=== PATIENT | female | born 1975 | race Caucasian/White ===

== ENCOUNTER → 2017-03-31 | Outpatient (CLI) | payer BC ==
--- NOTE | ~2017-03-31 | MR32 ---
[facility] A Service of [facility] & [facility] RADIOLOGY TEXT RESULTS PATIENT: MICHELLE SENIOR LOCATION: [facility] : 77 UNIT #: [id number] AGE: [address]: Brody Dozier MD SEX: F ORDER DR: [id number] [facility] [address] [place], [place] [address] [id number] O MR#: [id number] Acc #: [id number] NAME: MICHELLE SENIOR : 1975 SEX: F STUDY DATE/TIME: 03/31/2017 8:41 UNIT: [facility] ROOM: STUDY DESCRIPTION: MR Cervical Wo Contrast Attending Physician: Brody Dozier M.D. Referring Physician: Brody Dozier M.D. Ordering Physician: Brody Dozier M.D. Primary Care Physician: Brody Dozier M.D. [facility] CENTER REPORT This report is preliminary unless electronic signature is present. EXAM Cervical spine MRI, no contrast; 03/31/2017. COMPARISON Previous cervical spine MRI most recent dated 09/04/2010 HISTORY History of Chiari-I malformation, status post suboccipital craniectomy. Patient now complains of right posterior neck and occipital skull mass, right side neck and shoulder numbness. FINDINGS Spine alignment is normal. Bone marrow and cord signal are normal. Patient has had suboccipital craniectomy, but the exam is otherwise unremarkable. No mass is seen, and there is no substantial canal or foraminal compromise at any level in the cervical spine. IMPRESSION Normal cervical spine MRI, status post suboccipital craniectomy. No canal or foraminal compromise, abnormal marrow or cord signal, or evidence of mass or mass effect in the posterior soft tissues. Dictated by... Curt Castillo M.D. THIS IS AN ELECTRONICALLY VERIFIED REPORT Curt Castillo M.D. at 04/04/2017 9:08 AM RICK/cherelle TD: 03/31/2017 17:13 JOB #: [id number] [facility] A Service of [facility] & [facility] RADIOLOGY TEXT RESULTS PATIENT: MICHELLE SENIOR LOCATION: [facility] : 77 UNIT #: [id number] AGE: [address]: Brody Dozier MD SEX: F ORDER DR: MRI CENTER REPORT Page 1 of 1 COPY
--- NOTE | ~2017-03-31 | MR18 ---
[facility] A Service of [facility] RADIOLOGY TEXT RESULTS PATIENT: MICHELLE SENIOR LOCATION: [facility] : 77 UNIT #: [id number] AGE: [address]: Brody Dozier MD SEX: F ORDER DR: [id number] [facility] [address] [place], [place] [address] [id number] O MR#: [id number] Acc #: [id number] NAME: MICHELLE SENIOR : 1975 SEX: F STUDY DATE/TIME: 03/31/2017 8:20 UNIT: [facility] ROOM: STUDY DESCRIPTION: MR Brain Wo Contrast Attending Physician: Brody Dozier M.D. Referring Physician: Brody Dozier M.D. Ordering Physician: Brody Dozier M.D. Primary Care Physician: Brody Dozier M.D. MRI CENTER REPORT This report is preliminary unless electronic signature is present. EXAM Brain MRI without contrast, 03/31/2017. PROCEDURE Routine unenhanced brain MRI. HISTORY Two to three month history of episodes of dizziness. COMPARISON Prior brain MRI dated 10/24/2006. FINDINGS Patient has had suboccipital craniectomy, and Chiari malformation demonstrated on the prior brain MRI is no longer present. The brain, itself, is structurally normal. Brain parenchymal signal is normal. There is no mass, hydrocephalus or extraaxial fluid collection. It appears there has been previous sinus surgery and there is a frontal, ethmoid, sphenoid and maxillary sinus mucosal thickening but no air-fluid level. IMPRESSION Sinus mucosal disease and surgical changes from posterior fossa decompression, otherwise, normal brain MRI without contrast. The previously demonstrated Chiari-I malformation is no longer identifiable. The exam is otherwise normal. Dictated by... Curt Castillo M.D. THIS IS AN ELECTRONICALLY VERIFIED REPORT [facility] A Service of [facility] RADIOLOGY TEXT RESULTS PATIENT: MICHELLE SENIOR [facility] [birth year] UNIT #: [id number] AGE: [address]: Brody Dozier MD SEX: F ORDER DR: Curt Castillo M.D. at 04/04/2017 9:08 AM TEV/jt TD: 03/31/2017 17:09 JOB #: [id number] MRI CENTER REPORT Page 1 of 1 COPY
== END | disposition home or self-care (01) ==
LOC: CMRI 07:51
DX: M54.2 Cervicalgia (principal); R42 Dizziness and giddiness; H53.9 Unspecified visual disturbance; G93.89 Other specified disorders of brain
CPT/HCPCS: 70551; 72141